=== PATIENT | female | born 1960 | race Caucasian/White ===

== ENCOUNTER 2017-08-06 04:55 | Emergency (ER) | payer SELFPAY ==
[2017-08-06 05:08] VITALS: BP 154/98; PULSE 88; TEMP 98.6; BMI 32.5
--- NOTE | 2017-08-06 05:15 | PDOC ---
History of Present Illness - General Chief Complaint: Blood Pressure Problem Stated Complaint: HEADACHE/HIGH BLOOD PRESSURE Time Seen by Provider: 08/06/17 05:11 History Source: Patient Exam Limitations: No Limitations - History of Present Illness Initial Comments: 08/06/17 05:15 This is a 56-year-old female who comes in complaining of hypertension and discomfort in the area of her sinuses. Patient has had a recent upper respiratory tract infection for the last week and now her sinuses are bothering her. Patient does have a history of sinusitis in the past. Patient otherwise has a history of hypertension blood pressure at home and said it was high so she came in here here in the emergency room is 160/90. Patient otherwise denies any shortness of breath, chest pain or headache other than the sinuses. PAST MEDICAL HISTORY: no significant history PAST SURGICAL HISTORY: no significant history FAMILY HISTORY: no pertinant history SOCIAL HISTORY: Pt lives with family and is employed. MEDICATIONS: reviewed ALLERGIES: As per nursing notes Review of Systems General: No fevers or chills, no weakness, no weight loss HEENT: No change in vision. No sore throat,. No ear pain CardioVascular: No chest pain or shortness of breath Respiratory:No cough, or wheezing. Gastrointestinal: no nausea, vomitting, diarrhea or constipation, No rectal bleeding Genitourinary: No dysuria, hematuria, or frequency Musculoskeletal: No joint or muscle pain or swelling Neurologic: No headache, vertigo, dizziness or loss of consciousness Psychiatric: nor depression Skin: No rashes or easy bruising Endocrine: no increased thirst or abnormal weight change Allergic: no skin or latex allergy All other systems reviewed and normal Exam: General: Well-nourished well-developed individual, no acute distress HEENT: Throat: Normal, tonsils normal, no erythema or exudate There is tenderness over the sinuses on percussion and palpation. Neck: Supple, no meningeal signs, no lymphadenopathy Eyes::Pupils equal reactive and round, extraocular motion intact Chest: Nontender to palpation Cardiac: S1-S2 normal, regular rate and rhythm, no murmurs rubs or gallops Respiratory: Lungs clear to auscultation bilateral Extremities: Warm, dry, no cyanosis, clubbing, or edema Skin: No rashes Neuro: Alert and oriented x3, CN II - XII intact, nonfocal exam with normal strength, normal sensation, normal reflexes, normal gait, Psych: Normal mood and affect Assessment and plan: This is a 56-year-old female with history of hypertension who has mildly elevated blood pressure but says she's been under a lot of stress and also a sinusitis. Patient started on Zithromax and told to take an extra blood pressure medication A for blood pressure remains high and follow-up with her primary care Past History - Past Medical History Allergies/Adverse Reactions: Allergies Allergy/AdvReac Type Severity Reaction Status Date / Time codeine Allergy Verified 08/06/17 04:58 pseudoephedrine AdvReac Verified 08/06/17 04:58 [From Sudafed] Home Medications: Ambulatory Orders Atenolol [Tenormin] 25 mg PO DAILY 08/06/17 Atorvastatin Ca [Lipitor] 20 mg PO HS 08/06/17 Azithromycin 250 mg PO DAILY #4 tablet 08/06/17 Fluoxetine HCl [Prozac -] 10 mg PO DAILY 08/06/17 Lorazepam 0.5 mg PO PRN 08/06/17 COPD: No HTN: Yes Hypercholesterolemia: Yes - Suicide/Smoking/Psychosocial Hx Smoking History: Never smoked Have you smoked in the past 12 months: No Information on smoking cessation initiated: No Hx Alcohol Use: No Drug/Substance Use Hx: No Substance Use Type: None *Physical Exam - Vital Signs Last Vital Signs Temp Pulse Resp BP Pulse Ox 98.6 F 88 18 154/98 99 08/06/17 05:05 08/06/17 05:05 08/06/17 05:05 08/06/17 05:05 08/06/17 05:05 *DC/Admit/Observation/Transfer Diagnosis at time of Disposition: Sinusitis Qualifiers: Sinusitis location: frontal Chronicity: acute Recurrence: non-recurrent Qualified Code(s): J01.10 - Acute frontal sinusitis, unspecified - Discharge Dispostion Disposition: HOME Condition at time of disposition: Stable Admit: No - Referrals Referrals: Luis Osorio MD [Primary Care Provider] - - Patient Instructions Printed Discharge Instructions: How to Monitor Your Blood Pressure at Home, DI for Sinusitis Additional Instructions: If your blood pressure continues to be consistently over 140 follow-up with your doctor as you may need to have another blood pressure medication added to your medications. However once the stress is reduced and your sinus infection is cleared up your blood pressure most likely will return back to its normal levels. For the sinus infection take azithromycin 1 tablet a day for the next 4 days you 're given your first tablet today so take your next tablet tomorrow morning. I a prescription to her pharmacy for the other 4 days of azithromycin. Return to the emergency department immediately with ANY new, persistent or worsening symptoms. Continue any medications as previously prescribed by your physician. You should follow up with your primary doctor as soon as possible regarding today's emergency department visit. . Please make sure your doctor reviews the results of your emergency evaluation. Thank you for coming to the Emergency Department today for your care. It was a pleasure to see you today. Please note that your evaluation is INCOMPLETE until you follow-up with your doctor. - Post Discharge Activity
[2017-08-06] MEDS ORDERED: AZITHROMYCIN 500 MG TABLET PO ONE (05:18)
== END 2017-08-06 05:31 | disposition home or self-care (01) ==
LOC: FER 04:55
DX: J01.10 Acute frontal sinusitis, unspecified (principal); I10 Essential (primary) hypertension
CPT/HCPCS: 99281-25